=== PATIENT | male | born 1990 ===

== ENCOUNTER 2017-05-04 23:58 | Emergency (ER) | payer SELFPAY ==
[~2017-05-04] VITALS: Ht 177.8 cm; Wt 82.3 kg
[2017-05-05 00:03] VITALS: Ht 177.8 cm; Wt 82.3 kg
[2017-05-05 01:17] LABS: ABNORMAL IP MESSAGE 1; BASOPHILS % 0.4 % (0.0-2.0); EOSINOPHILS # 0.1 10^3/ul (0.0-0.5); EOSINOPHILS % 0.8 % (0.0-7.0); HEMATOCRIT 46.8 % (42.0-52.0); HEMOGLOBIN 15.6 g/dl (14.0-18.0); LYMPHOCYTES # 2.6 10^3/ul (0.8-2.9); MEAN CORPUSCULAR HEMOGLOBIN 33.1 pg (29.0-33.0); MEAN CORPUSCULAR HGB CONC 33.3 g/dl (32.0-37.0); MEAN CORPUSCULAR VOLUME 99.2 fl (82.0-101.0); MEAN PLATELET VOLUME 12.2 fl (7.4-10.4); MONOCYTE # 0.9 10^3/ul (0.3-0.9); NEUTROPHIL # 7.3 10^3/ul (1.6-7.5); NEUTROPHILS % 66.5 % (39.0-77.0); PLATELET COUNT 77 10^3/UL (140-415); POSITIVE DIFF @See below; RED BLOOD COUNT 4.72 10^6/ul (4.70-6.10); RED CELL DISTRIBUTION WIDTH 13.1 % (11.5-14.5)
--- NOTE | 2017-05-05 01:46 | RADRPT ---
PROCEDURE: XR Chest. CLINICAL INDICATION: Chest pain TECHNIQUE: Single frontal view of the chest. COMPARISON: None. FINDINGS: The cardiomediastinal silhouette is within normal limits. The lungs are clear. No signs of pleural f luid or pneumothorax are seen. The osseous structures and soft tissues are unremarkable. IMPRESSION: No evidence for active cardiopulmonary disease. RPTAT: [facility] Physician Katiuska Date Time Electronically viewed and signed by Physician Katiuska on 05/05/2017 01:46 RS/
--- NOTE | 2017-05-05 02:45 | ERD ---
ER Documentation Chief Complaint Chief Complaint cough x 2 weeks, chest congestion HPI This is a 27-year-old male, with past medical history for bipolar disorder, presenting to the emergency department for chest wall pain and cough 2 weeks. Patient states he has had intermittent, productive cough with green sputum for the last 2 weeks. Patient states he developed chest wall pain 2-3 days ago. Patient was recently hospitalized for suicidal ideation and manic state 3 days ago. Patient states he recently found out that his father committed suicide. Patient currently denies any suicidal ideation or homicidal ideation. Patient states he has history of heroin abuse. No recent drug use. No shortness of breath or difficulty breathing. No vomiting, diarrhea or abdominal pain. No fevers or chills. ROS All systems reviewed and are negative except as per history of present illness. Allergies Allergies: Coded Allergies: No Known Allergy (Unverified , 05/05/17) PMhx/Soc Medical and Surgical Hx: pt denies Medical Hx Hx Psychiatric Problems: Yes (Bipolar) Hx Alcohol Use: Yes Hx Substance Use: Yes (THC) Hx Tobacco Use: Yes Smoking Status: Current every day smoker Physical Exam Vitals Vital Signs Date Time Temp Pulse Resp B/P Pulse Ox O2 Delivery O2 Flow Rate FiO2 05/05/17 00:03 98.3 89 20 138/72 100 Physical Exam Const: No acute distress, alert Head: Atraumatic Eyes: Normal Conjunctiva ENT: Normal External Ears, Nose and Mouth. Neck: Full range of motion..~ No meningismus. Resp: Clear to auscultation bilaterally. No wheezing, rhonchi or crackles. No stridor or labored breathing. No intercostal retractions. Patient is talking in complete sentences. Cardio: Regular rate and rhythm, no murmurs Abd: Soft, non tender, non distended. Normal bowel sounds Skin: No petechiae or rashes Back: No midline or flank tenderness Ext: No cyanosis, or edema Neur: Awake and alert Psych: Normal Mood and Affect Result Diagram: 05/05/172 Results 24 hrs Laboratory Tests Test 05/05/17 00:52 White Blood Count 11.010^3/ul Red Blood Count 4.7210^6/ul Hemoglobin 15.6g/dl Hematocrit 46.8% Mean Corpuscular Volume 99.2fl Mean Corpuscular Hemoglobin 33.1pg Mean Corpuscular Hemoglobin Concent 33.3g/dl Red Cell Distribution Width 13.1% Platelet Count 7710^3/UL Mean Platelet Volume 12.2fl Neutrophils % 66.5% Lymphocytes % 24.0% Monocytes % 8.0% Eosinophils % 0.8% Basophils % 0.4% Nucleated Red Blood Cells % 0.0/100WBC Neutrophils # 7.310^3/ul Lymphocytes # 2.610^3/ul Monocytes # 0.910^3/ul Eosinophils # 0.110^3/ul Basophils # 0.010^3/ul Nucleated Red Blood Cells # 0.010^3/ul Procedures/MDM Patient: DEANN COHEN : 1990 Age: 27 Sex: M MR #: [id number] DOS: 05/05/17 0040 Ordering MD: RADHA VELAZQUEZ NP Location: [facility] Room/Bed: PROCEDURE: XR Chest. CLINICAL INDICATION: Chest pain TECHNIQUE: Single frontal view of the chest. COMPARISON: None. FINDINGS: The cardiomediastinal silhouette is within normal limits. The lungs are clear. No signs of pleural fluid or pneumothorax are seen. The osseous structures and soft tissues are unremarkable. IMPRESSION: No evidence for active cardiopulmonary disease. EKG: As interpreted by myself and Dr. Cole Rate/Rhythm: Normal sinus rhythm with heart rate 86 bpm QRS, ST, T-waves: No changes consistent w/ acute ischemia Impression: No evidence of ischemia or arrhythmia MDM: This is a 27-year-old male presenting to the emergency department for cough and chest wall pain. Patient has history of bipolar disorder and was recently hospitalized for suicidal ideation. Patient states he was released from the hospital yesterday. Currently no suicidal ideation. CBC shows no significant anemia or infection. Chest x-ray reviewed by radiologist as no evidence for active cardiopulmonary disease. EKG shows normal sinus rhythm with heart rate 86 bpm. Differential diagnosis includes but not limited to pneumonia, bronchitis, pleurisy, costochondritis, gastroesophageal reflux,musculoskeletal chest pain and esophageal spasm. Low suspicion for acute coronary syndrome, pulmonary embolism, pneumothorax, aortic dissection and myocardial infarction. Patient is appropriate for outpatient management and will be discharged as stable. Instructed patient to follow up with primary care provider in the next 24-48 hours. Return to ED for worsening pain, abdominal pain, vomiting, diarrhea , high fever or any new or worsening symptoms. Patient verbalizes understanding. All questions answered at discharge. Odilialuis signed out to Amadou Jennings pending BMP and troponin results. Disclaimer: Inadvertent spelling and grammatical errors are likely due to EHR/ dictation software use and do not reflect on the overall quality of patient care. Also, please note that the electronic time recorded on this note does not necessarily reflect the actual time of the patient encounter. Departure Diagnosis: Primary Impression: Chest wall pain Condition: Stable RADHA RAJPUT NP May 05, 2017 02:45
[2017-05-05 03:08] LABS: ANION GAP 14 (8-16); BLOOD UREA NITROGEN 17 mg/dl (7-20); CARBON DIOXIDE 28 mmol/L (21-31); CHLORIDE 105 mmol/L (97-110); GLUCOSE 106 mg/dl (70-220); POTASSIUM 3.6 mmol/L (3.5-5.1); SODIUM 143 mmol/L (135-144)
[2017-05-05 03:18] LABS: TROPONIN-I < 0.012 ng/ml (0.00-0.12)
== END 2017-05-05 03:31 | disposition home or self-care (01) ==
LOC: FTE 23:58
DX: R07.89 Other chest pain (principal); F17.210 Nicotine dependence, cigarettes, uncomplicated
CPT/HCPCS: 36415; 71010; 80048; 84484; 85025